=== PATIENT | female | born 1965 | race Caucasian/White ===

== ENCOUNTER 2022-09-04 09:34 | Outpatient (CLI) | payer BC, SELFPAY | END 2022-09-04 09:35 | disposition home or self-care (01) | PROVIDERS: PCP Internal Medicine; Visit Provider Internal Medicine | DX: I10 Essential (primary) hypertension (principal); R63.5 Abnormal weight gain | CPT/HCPCS: 80053; 80061; 84443 ==

== ENCOUNTER 2022-11-02 20:43 | Emergency (ER) | payer BC, SELFPAY ==
[2022-11-02 20:49] VITALS: BP 114/73; PULSE 66; RESP 16; TEMP 35.6; O2SAT 98
--- NOTE | 2022-11-02 21:11 | ED.GENADULT ---
HPI - General Adult General Chief complaint: Unspecified Complaint, Adult Stated complaint: Wood tick bite, chills, fatigue, muscle ache Time Seen by Provider: 11/02/22 20:46 Source: patient Mode of arrival: ambulatory Limitations: no limitations History of Present Illness HPI narrative: 57-year-old female presenting today after she found a tick on her back earlier today. The tick was engorged. She believes it was a wood tick but there is no way to know for sure if she through the tick in the trash. She states that she was very fatigued today took a nap which she has done in the past, but she felt more tired than usual. No fevers or chills. No skin rashes. Patient has been looking uptake symptoms on the Internet and is quite concerned that she has alexandra Mountain spotted fever or Lyme disease. Related Data Previous Rx's Medication Instructions Recorded dextroamphetamine-amphetamine 10 10 mg PO BID #60 tabs 03/06/22 mg tablet (Adderall) Allergies Allergy/AdvReac Type Severity Reaction Status Date / Time No Known Allergies Allergy Unknown Unknown Verified 09/04/22 09:18 Review of Systems Status of ROS: Reports: 10 or more systems reviewed and unremarkable except as noted in History and below [facility] Medical History Weight gain ?R63.5 - Abnormal weight gain (ICD-10) Social History Smoking Status: Former smoker Little interest or pleasure in doing things: more than half the days Feeling down, depressed, or hopeless: not at all Exam Narrative: Exam Narrative: Well-nourished well-developed patient in no acute distress but is anxious. Alert and oriented. Answers questions appropriately. Mood and affect are appropriate. Thoughts are goal oriented and rational. No tangential or magical thinking noted. Patient speaks in full sentences without needing to catch her breath. HEENT: Normocephalic atraumatic. Pupils are equally round reactive to light. Extraocular muscles are intact. Conjunctivae are moist without any icterus noted. Moist mucous membranes. Cardiovascular: Heart is regular rate and rhythm S1 and S2 are present without any murmurs. Lungs: Clear to auscultation bilaterally no wheezes rhonchi or rales are appreciated. Patient takes deep breaths without any discomfort. Abdomen: Soft and nontender nondistended with normal bowel sounds. Extremities: Bilateral lower extremities are without edema. Skin: Well perfused without any obvious rashes. She does have at the site of the tick bite a small area of skin that has been avulsed in some mild surrounding erythema, the area is less than a cm in diameter. Does not appear to be infected. There is no bull's eye rash noted. Const: Vital Signs, click to edit/add: Vital Signs - 24 hr 11/02/22 20:49 Temperature 96.1 F L Pulse Rate [Left P ulse Oximeter] 66 Respiratory Rate 16 Blood Pressure [Ri ght Upper Arm] 114/73 Pulse Oximetry 98 Oxygen Delivery Me thod Room Air Course Vital Signs Vital signs: Initial Vital Signs Temperature 96.1 F L 11/02/22 20:49 Temperature Source Temporal Artery Scan 11/02/22 20:49 Pulse Rate 66 11/02/22 20:49 Pulse Rhythm Regular 11/02/22 20:49 Respiratory Rate 16 11/02/22 20:49 Blood Pressure 114/73 11/02/22 20:49 Blood Pressure Mean 86 11/02/22 20:49 Blood Pressure Position Sitting 11/02/22 20:49 Pulse Oximetry 98 11/02/22 20:49 Oxygen Delivery Method Room Air 11/02/22 20:49 Vital Signs Temperature 96.1 F L 11/02/22 20:49 Pulse Rate 66 11/02/22 20:49 Respiratory Rate 16 11/02/22 20:49 Blood Pressure 114/73 11/02/22 20:49 Pulse Oximetry 98 11/02/22 20:49 Oxygen Delivery Method Room Air 11/02/22 20:49 Temperature 96.1 F L 11/02/22 20:49 Pulse Rate 66 11/02/22 20:49 Respiratory Rate 16 11/02/22 20:49 Blood Pressure 114/73 11/02/22 20:49 Pulse Oximetry 98 11/02/22 20:49 Oxygen Delivery Method Room Air 11/02/22 20:49 Medical Decision Making MDM Narrative Medical decision making narrative: 57-year-old female status post tick bite with engorged tick which was removed today. Will treat with doxycycline 200 mg time 1 today. Encouraged her to follow up with her primary care provider for any concerning symptoms going forward. Did my best to reassure her that this will treat the potential of Lyme disease, and that I do not believe she has alexandra Mountain spotted fever due to lack of symptoms. Discharge Plan Discharge Clinical Impression: Tick bite Condition: Stable Additional Instructions: Follow-up with primary care provider if you develop a fever or rash. Prescriptions: No Action dextroamphetamine-amphetamine [Adderall] 10 mg tablet 10 mg PO BID Qty: 60 0RF Rx Instructions: administer doses at least 4-6 hours apart Follow Up/Referrals: Polo Roldan MD [Primary Care Provider] - Stand Alone Forms: [employer] Info Instructions
[2022-11-02] MEDS: DOXYCYCLINE HYCLATE 100 MG 200 MG PO (21:28)
== END 2022-11-02 21:35 | disposition home or self-care (01) ==
PROVIDERS: Emergency Provider Family Medicine; PCP Internal Medicine
DX: S20.469A Insect bite (nonvenomous) of unspecified back wall of thorax, initial encounter (principal); T63.481A Toxic effect of venom of other arthropod, accidental (unintentional), initial encounter
CPT/HCPCS: 99282; 99283; A9270

== ENCOUNTER 2023-03-11 15:35 | Outpatient (CLI) | payer BC, SELFPAY ==
--- NOTE | 2023-03-11 15:40 | CRLHL7_ITS ---
For Patients: As a result of the Century Cures Act, medical imaging exams and procedure reports are released immediately into your electronic medical record. You may view this report before your referring provider. If you have questions, please contact your health care provider. BILATERAL SCREENING MAMMOGRAM WITH COMPUTER-AIDED DETECTION TECHNIQUE: CC and MLO views were obtained. These mammographic images have been obtained using full-field digital technique. These mammographic images were interpreted with the benefit of computer-aided detection. COMPARISON FILM: 06/27/15, 05/30/14, 05/03/14. FINDINGS: The breasts are heterogeneously dense, which may obscure small masses. IMPRESSION: There is no radiographic evidence for malignancy. ASSESSMENT: BI-RADS Category 1: Negative RECOMMENDATION: Routine screening mammogram in 1 year. A lay language report of this examination will be provided to the patient. WILLARD BRADFORD M.D. Diagnostic Radiologist [email or web address] Transcribed: 03/12/2023, 7:[address]/Dictated by: Willard Bradford MD @ 03/12/2023 9:39:00 AM (Electronically Signed)
== END 2023-03-11 15:36 | disposition home or self-care (01) ==
LOC: MAMMO 15:36
PROVIDERS: PCP Internal Medicine; Visit Provider Registered Nurse
DX: Z12.31 Encounter for screening mammogram for malignant neoplasm of breast (principal); R92.2 Inconclusive mammogram
CPT/HCPCS: 77067

== ENCOUNTER 2024-04-15 10:17 | Emergency (ER) | payer BC, SELFPAY ==
[2024-04-15] VITALS (22 sets, daily range): BP systolic 98–136; BP diastolic 58–77; PULSE 29–82; RESP 22; TEMP 36.4; O2SAT 97–100
--- OUTSIDE RECORDS SUMMARY | 2024-04-15 10:20 | XMS_ITS | Clinical Summary ---
Author Organization [facility] Address [place], [place] [address] Care Team Providers Care Power Transformer Repairer Name Role Phone Vidya Michelle MD Primary Care Provider [phone] Allergies No known active allergies Medications VITAMIN TAB take 1 tablet by oral route once daily 0 04/02/2007 Active METOPROLOL SR 25 MG 24 HR TAB three tablets daily 0 04/02/2007 Active Immunizations Name Administration Dates Next Due AMB Influenza, IIV3 (Age >=3 years)(Flu Clinic [facility]) 02/11/2008 Family History Medical History Relation Name Comments Allergies Mother Cancer-breast Paternal Aunt Cancer-breast Paternal Grandmother Allergies Sister Cancer-breast Sister Cancer-ovarian No Family History Relation Name Status Comments Mother Paternal Aunt Alive Diagnosed in h er 60s Paternal Grandmother (Age 79) Sister Alive Social History Tobacco Use Types Packs/Day Years Used Date Smoking Tobacco: Never Alcohol Use Standard Drinks/Week Comments Not Asked 0 (1 standard drink = 0.6 oz pur e alcohol) Estimated Date of Delivery Comme nts Yes 08/24/2007 Sex and Gender Information Value Date Recorded Sex Assigned at Not on file Legal Sex Female 6:31 AM CEMENTER HAND Gender Identity Not on file Sexual Orientation Not on file Obstetrics History Para Term AB IAB SAB Ectopic Multiple Livin g Live Births 4 1 2 2 1 Date Outcome GA Total Labor Labor/2nd/3rd Weight Sex Type Anes PTL Mindy A1 A5 Name Clin SAB SAB Para Last Filed Vital Signs Vital Sign Reading Time Taken Comments Blood Pressure 94/60 02/09/2008 1:32 PM CEMENTER HAND Pulse 65 02/09/2008 1:32 PM CEMENTER HAND Temperature 36.7 C (98.1 F) 02/09/2008 1:32 PM CEMENTER HAND Respiratory Rate - - Oxygen Saturation - - Inhaled Oxygen Concentration - - Weight 109.6 kg (241 lb 9.6 oz) 06/25/2007 3:36 PM CDT Height - - Body Mass Index - - Plan of Treatment Health Maintenance Due Date Last Done Comments Tdap 1978 Depression screening for age 12+ 1979 HIV for age 15-65 1982 BMI (ht and wt on same day) for age 18+ 1985 Hepatitis C screening for ag e 18-79 1985 Tetanus booster 1987 Colonoscopy through age 75 2012 Lipids for age 45-75 02/10/2013 02/11/2008 Mammogram for age 45-75 06/26/2016 06/27/19 16, 05/30/2014, 05/23/2014, Additional history exists Pneumococcal series for age 50+ (1 of 1 - PCV) 2017 Zoster (shingles) series for age 50+ (1 of 2) 2017 COVID-19 vaccine series ( - 2023- season) 2023 Influenza for age 50-64 11/30/2023 02/11/2008 Pap test for age 21-65 12/10/2025 12/10/2022, 2022 RSV vaccine for adults or (1 - 1-dose 75+ series) 2042 Procedures Procedure Name Priority Date/Time Associated Diagnosis Comments HPV HIGH RISK Routine 12/10/2022 12:00 PM CDT XR MAMMO ANNETTE BILAT SCREEN Routine 06/27/2015 12:27 PM CDT Visit for screening mammogram LIPID PANEL Routine 02/11/2008 8:58 AM CEMENTER HAND Lipid Screening from Last 3 Months or Most Recently Relevant to Health Maintenance Results * HPV HIGH RISK (12/10/2022 12:00 PM CDT) TYPE 16 Negative Negative 12/16/2022 11:12 AM CDT [facility] TYPE 18 Negative Negative 12/16/2022 11:12 AM CDT [facility] OTHER HIGH RISK TYPES Negative Negative 12/16/2022 11:12 AM CDT [facility] Other (Cervical) 12/10/2022 12:00 PM CDT 12/12/2022 2:36 PM CDT Narrative [facility] - 12/16/2022 11:12 AM CDT HPV types 16, 18, 31, 33, 35, 39, 45, 51, 52, 56, 58, 59, 66 and 68 DNA were undetectable or below the pre-set threshold. Methodology: Dana Vidal 4800 HPV Test us Lili Hastings NP MICROBIOLOGY Final Res ult [facility] [address] [place] [id number], [place] * XR MAMMO ANNETTE SCREEN BILAT (06/27/2015 12:27 PM CDT) Anatomical Region Laterality Modality BREASTS, Breast Left, Breast Right Bilateral Mammography Impressions 06/27/2015 3:37 PM CDT There is no radiographic evidence for malignancy. Recommend annual mammograms. A lay language report of this examination will be provided to the patient. MAMMOGRAM ASSESSMENT: ACR 1 Negative Narrative 06/27/2015 3:37 PM CDT XR MAMMO ANNETTE SCREEN BILAT [[id number]] CLINICAL HISTORY: This is an asymptomatic 50 y.o. patient. INDICATION FOR EXAM: Mammogram Screening. TECHNIQUE: CC & MLO views were obtained. This digital study was evaluated with the assistance of Computer-Aided Detection. Breast Tomosynthesis was used in interpretation. COMPARISON FILM: Yes 05/23/14 05/18/13 FINDINGS: Mammographically, the breast tissue is heterogeneously dense, which could obscure detection of small masses. There are no dominant masses, suspicious micro calcifications or areas of architectural distortion. us Vidya Michelle MD MAMMO Final Res ult * LIPID PANEL (02/11/2008 8:58 AM CEMENTER HAND) CHOLESTEROL,TOTAL 188 110 - 199 mg/dL [facility] TRIGLYCERIDES 47 <150 mg/dL [facility] HDL CHOLESTEROL 62 >40 mg/dL [facility] CHOL/HDL RATIO 3.03 <4.51 [facility] LDL CHOLESTEROL 117 <131 mg/dL [facility] PATIENT STATUS Fasting [facility] Blood specimen (specimen) BLOOD SPECIMEN / Unknown 02/11/2008 8:58 AM CEMENTER HAND 02/11/2008 8:45 AM CEMENTER HAND us Walker Garcia MD CHEMISTRY Final R esult [facility] [address] [place] [address] from Last 3 Months or Most Recently Relevant to Health Maintenance Insurance [employer] Care Teams Power Transformer Repairer Relationship Specialty Start Date End Date Vidya Michelle MD [address] [place] [address] PCP - General 03/05/07
--- OUTSIDE RECORDS SUMMARY | 2024-04-15 10:20 | XMS_ITS | Referral Summary ---
Author Organization [facility] Address [address] [place] [id number] Care Team Providers Care Food Service Team Member Name Role Phone Polo Roldan MD Primary Care Provider Allergies No known active allergies Medications amphetamine-dext roamphetamine (ADDERALL) 10 MG tablet TK 1 T PO BID 0 9 Active ipratropium (ATROVENT) 0.06 % nasal sprayIndications :Nasal turbinate hypertrophy [place] 2 sprays into both nostrils 4 times daily 15 mL 3 9 Active azelastine (ASTELIN) 0.1 % nasal sprayIndications :Nasal turbinate hypertrophy,Dysf unction of both eustachian tubes [place] 1 spray into both nostrils 2 times daily as needed for rhinitis 30 mL 3 9 Active Active Problems Problem Noted Date Diagnosed Date Eustachian tube dysfunction, bilateral 9 Social History Tobacco Use Types Packs/Day Years Used Date Smoking Tobacco: Former Cigarettes 0.5 15 Smokeless Tobacco: Never Tobacco Cessation:Counseling Given: No Alcohol Use Standard Drinks/Week Comments Yes 0 (1 standard drink = 0.6 oz pur e alcohol) AUDIT-C Answer Date Recorded Q1: How often do you have a drink containing alc ohol? Monthly or less 01/14/2019 Average Number of Drinks Not on file 10/17/2 019 Frequency of Binge Drinking Not on file 12/29 PHQ-2 Answer Date Recorded PHQ-2 Score 0 01/14/2019 Adolescent Education Answer Date Record ed Getting School Help Needed Not on file 12/20 Comments Unknown Sex and Gender Information Value Date Recorded Sex Assigned at Not on file Legal Sex Female 11:34 AM CDT Gender Identity Not on file Sexual Orientation Not on file Last Filed Vital Signs Vital Sign Reading Time Taken Comments Blood Pressure 109/72 03/03/2019 2:39 PM ALLEY TENDER Pulse 92 03/03/2019 2:39 PM ALLEY TENDER Temperature - - Respiratory Rate 17 01/14/2019 12:51 PM CDT Oxygen Saturation 96% 03/03/2019 2:39 PM ALLEY TENDER Inhaled Oxygen Concentration - - Weight 89.4 kg (197 lb) 03/03/2019 2:39 PM ALLEY TENDER Height 174 cm (5' 8.5) 03/03/2019 1:20 PM ALLEY TENDER Body Mass Index 29.52 03/03/2019 1:20 PM ALLEY TENDER Plan of Treatment Not on file Insurance [facility] Care Teams Food Service Team Member Relationship Specialty Start Date End Date Polo Roldan MD [facility] [address] [place] [address] PCP - General Emergency Medicine 09/21/18
--- OUTSIDE RECORDS SUMMARY | 2024-04-15 10:20 | XMS_ITS | Clinical Summary ---
Author Organization [facility] Address [address] [place] [id number] Care Team Providers Care Curve Saw Operator Name Role Phone Polo Roldan MD Primary Care Provider Allergies No known active allergies Medications amphetamine-dext roamphetamine (ADDERALL) 10 MG tablet TK 1 T PO BID 0 9 Active ipratropium (ATROVENT) 0.06 % nasal sprayIndications :Nasal turbinate hypertrophy [place] 2 sprays into both nostrils 4 times daily 15 mL 3 9 Active azelastine (ASTELIN) 0.1 % nasal sprayIndications :Nasal turbinate hypertrophy,Dysf unction of both eustachian tubes [place] 1 spray into both nostrils 2 times daily as needed for rhinitis 30 mL 3 9 Active Active Problems Problem Noted Date Diagnosed Date Eustachian tube dysfunction, bilateral 9 Family History Medical History Relation Comments Cancer Father Diabetes Father Cancer Paternal Grandmother Cancer Sister Diabetes Sister Relation Status Comments Father Paternal Grandmother Sister Social History Tobacco Use Types Packs/Day Years [...] Average Number of Drinks Not on file 019 Frequency of Binge Drinking Not on [...] Comments Blood Pressure 109/72 03/03/2019 2:39 PM CANVAS MARKER Pulse 92 03/03/2019 2:39 PM CANVAS MARKER Temperature - - Respiratory Rate 17 01/14/2019 12:51 PM CDT Oxygen Saturation 96% 03/03/2019 2:39 PM CANVAS MARKER Inhaled Oxygen Concentration - - Weight 89.4 kg (197 lb) 03/03/2019 2:39 PM CANVAS MARKER Height 174 cm (5' 8.5) 03/03/2019 1:20 PM CANVAS MARKER Body Mass Index 29.52 03/03/2019 1:20 PM CANVAS MARKER Plan of Treatment Not on file Insurance [employer] [place] Care Teams Curve Saw Operator Relationship Specialty Start Date End Date Polo Roldan MD [facility] [address] [place] [address] PCP - General Emergency Medicine 09/21/18
--- NOTE | 2024-04-15 11:42 | ED.GENADULT ---
HPI - General Adult General Date Seen: 04/15/24 Chief complaint: Flank Pain Stated complaint: flank pain/left hand numbness Time Seen by Provider: 04/15/24 11:30 History of Present Illness HPI narrative: 58-year-old female with history of hypertension, ADHD, presenting to the ER today with right flank pain. She has a past medical history of a previous gallstone (diagnosed several years ago, but never had recurrent pain so has not had cholecystectomy). She presents to the ER today with pain in her right flank that is wrapping around to her right upper quadrant and right lower quadrant of her abdomen. She woke up in the morning about 3 days ago with some pain in the right flank. She initially thought maybe she had pulled a muscle but since then the pain has been coming and going in waves and steadily getting worse over time. This morning it was quite severe and made her nauseous. She did not vomit. No clear pattern to the pain. No relationship to eating or fasting, and does not change with movement. No associated urinary symptoms. No dysuria, urgency, frequency, visible hematuria. Bowel movements have been normal. She has been sweaty and dizzy from the pain but not running a fever. No cough. No rib pain. No trouble breathing. Related Data Previous Rx's ?Medication ?Instructions ?Recorded lorazepam 1 mg tablet 1 mg PO QHS PRN insomnia #30 tabs 05/21/23 dextroamphetamine-amphetamine 10 10 mg PO BID #60 tabs 02/17/24 mg tablet (Adderall) triamcinolone acetonide 0.1 % 1 applic topical QDAY #15 grams 03/04/24 topical cream Allergies Allergy/AdvReac Type Severity Reaction Status Date / Time No Known Allergies Allergy Unknown Unknown Verified 03/04/24 08:09 [facility] Medical History (Updated 04/15/24 @ 17:57 by Jack Burgess MD) Rash ?R21 - Rash and other nonspecific skin eruption (ICD-10) Insomnia ?G47.00 - Insomnia, unspecified (ICD-10) Weight gain ?R63.5 - Abnormal weight gain (ICD-10) Surgical History ?O03.9 - Complete or unspecified spontaneous without complication (ICD-10) S/P trigger finger release ?Z98.890 - Other specified postprocedural states (ICD-10) Family History Other Breast cancer Colon cancer Diabetes Heart disease High blood pressure Prostate cancer Social History What is your current living situation?: I have a place to live at present, but am concerned about future Problems where you live: water leaks In the past 12 months, utilities in danger of being shut off: no In past 12 months, lack of transportation kept you from medical appts, meetings, work, or getting things needed for daily living: no In the past 12 mos, have been you worried that your food would run out before you had money to buy more?: never true In the past 12 mos, the food you bought just didn't last and you didn't have money to buy more?: unable to answer Smoking Status: Former smoker How often do you have a drink containing alcohol: 2-4 times a month AUDIT-C Alcohol total score: 2 Non-prescribed substance use: denies use How often does anyone, including family, friends and others, physically hurt you: never How often does anyone, including family, friends and others, insult or talk down to you: fairly often How often does anyone, including family, friends and others, threaten you with harm: never How often does anyone, including family, friends and others, scream or curse at you: fairly often service: No Health Related Social Needs: Inadequate housing (Z59.1), housing instability, housed, with risk of homelessness (Z59.811) and Other personal risk factors, not elsewhere classified (Z91.89) Exam Narrative: Exam Narrative: Constitutional: Appears well-developed and well-nourished. Alert. Uncomfortable and rubbing her right side, having trouble sitting still because of pain Conversant. Non toxic. HENT: Head: Atraumatic. Nose: Nose normal. Mouth/Throat: Oral mucosa is clear and moist. no trismus. Pharynx normal. Tonsils symmetric. No tonsillar enlargement, erythema, or exudate. Eyes: Conjunctivae normal. EOM normal. Pupils equal, round, and reactive to light. No scleral icterus. Neck: Normal range of motion. Neck supple. No tracheal deviation present. Cardiovascular: Normal rate, regular rhythm. No gallop. No friction rub. No murmur heard. Symmetric radial artery pulses Pulmonary/Chest: Effort normal. No stridor. No respiratory distress. No wheezes. No rales. No rhonchi . No ribcage tenderness. Abdominal: Soft. Bowel sounds normal. No distension. No mass. Mild right upper quadrant and more significant right CVA tenderness. No right lower quadrant or McBurney's point tenderness No rebound. No guarding. Musculoskeletal: RUE: Normal range of motion. No tenderness. No deformity LUE: Normal range of motion. No tenderness. No deformity RLE: Normal range of motion. No edema. No tenderness. No deformity LLE: Normal range of motion. No edema. No tenderness. No deformity Neurological: Alert and oriented to person, place, and time. Normal strength. CN II-VII intact. No sensory deficit. GCS eye subscore is 4. GCS verbal subscore is 5. GCS motor subscore is 6. Normal coordination Skin: Skin is warm and dry. No rash noted. No pallor. Normal capillary refill. Psychiatric: Normal mood. Uncomfortable affect but otherwise normal and polite. Const: Vital Signs, click to edit/add: Vital Signs - 24 hr 04/15/24 10:24 04/15/24 13:00 04/15/24 13:02 Temperature 97.6 F Pulse Rate 65 Pulse Rate [Pulse Oximeter] 70 Respiratory Rate 22 Blood Pressure 121/77 Blood Pressure [Ri ght Upper Arm] 123/58 L Pulse Oximetry 99 [facility] 04/15/24 13:15 04/15/24 13:30 04/15/24 13:31 Temperature Pulse Rate 69 64 63 Pulse Rate [Pulse Oximeter] Respiratory Rate Blood Pressure 116/66 Blood Pressure [Ri ght Upper Arm] Pulse Oximetry 98 98 98 [facility] 04/15/24 13:45 04/15/24 14:00 04/15/24 14:01 Temperature Pulse Rate 62 67 55 L Pulse Rate [Pulse Oximeter] Respiratory Rate Blood Pressure 98/64 Blood Pressure [Ri ght Upper Arm] Pulse Oximetry 99 100 100 Oxygen Delivery [facility] 04/15/24 14:20 04/15/24 14:30 04/15/24 14:31 Temperature Pulse Rate 65 72 62 Pulse Rate [Pulse Oximeter] Respiratory Rate Blood Pressure 136/76 Blood Pressure [Ri ght Upper Arm] Pulse Oximetry 100 100 100 Oxygen Delivery Me thod 04/15/24 14:45 04/15/24 15:01 04/15/24 15:02 Temperature Pulse Rate 61 82 77 Pulse Rate [Pulse Oximeter] Respiratory Rate Blood Pressure 116/70 Blood Pressure [Ri ght Upper Arm] Pulse Oximetry 100 100 100 Oxygen Delivery Ks thod 04/15/24 15:23 04/15/24 15:30 04/15/24 15:31 Temperature Pulse Rate 29 L 66 68 Pulse Rate [Pulse Oximeter] Respiratory Rate Blood Pressure 113/66 Blood Pressure [Ri ght Upper Arm] Pulse Oximetry 99 97 Oxygen Delivery Ks thod 04/15/24 15:32 04/15/24 16:01 04/15/24 16:31 Temperature Pulse Rate 70 Pulse Rate [Pulse Oximeter] Respiratory Rate Blood Pressure 115/61 110/64 Blood Pressure [Ri ght Upper Arm] Pulse Oximetry 98 [facility] 04/15/24 17:01 Temperature Pulse Rate Pulse Rate [Pulse Oximeter] Respiratory Rate Blood Pressure 116/67 Blood Pressure [Ri ght Upper Arm] Pulse Oximetry Oxygen Delivery Me thod Course Course ED Course: Recheck-pain not much improved after Toradol. Dilaudid ordered Reevaluation(s) Reevaluation #1: Recheck-after Dilaudid 0.5 mg IV patient had significant side effects including dizziness, tingling , feeling lightheaded and she did develop hypoxia. Placed on nasal cannula and sats came up. Monitored and side effects resolved Reevaluation #2: Recheck-having recurrent pain. Dilaudid 0.2 mg IV administered. The patient did better with less side effects at this dose. Stone protocol CT is surprisingly negative for kidney stone. Will obtain gallbladder ultrasound Reevaluation #3: Recheck-ultrasound and labs reassuring. Patient now saying that the pain is rating a little bit into her lower ribs, she really endorsed earlier that was more in the muscular flank. Will add on D-dimer to check for possible very low right lower lung PE. Additional Reevaluation(s): Recheck D-dimer normal Vital Signs Vital signs: Initial Vital Signs Temperature 97.6 F 04/15/24 10:24 Temperature Source Temporal Artery Scan 04/15/24 10:24 Pulse Rate 70 04/15/24 10:24 Respiratory Rate 22 04/15/24 10:24 Blood Pressure 123/58 L 04/15/24 10:24 Blood Pressure Mean 79 04/15/24 10:24 Pulse Oximetry 99 04/15/24 10:24 Oxygen Delivery Method Room Air 04/15/24 10:24 Vital Signs Temperature 97.6 F 04/15/24 10:24 Pulse Rate 70 04/15/24 10:24 Respiratory Rate 22 04/15/24 10:24 Blood Pressure 123/58 L 04/15/24 10:24 Pulse Oximetry 99 04/15/24 10:24 Oxygen Delivery Method Room Air 04/15/24 10:24 Temperature 97.6 F 04/15/24 10:24 Pulse Rate 70 04/15/24 15:32 Respiratory Rate 22 04/15/24 10:24 Blood Pressure 116/67 04/15/24 17:01 Pulse Oximetry 98 04/15/24 15:32 Oxygen Delivery Method Room Air 04/15/24 10:24 Medications Administered Medications: Discontinued Medications Generic Name Dose Route Start Last Admin Trade Name Freq PRN Reason Stop Dose Admin Hydromorphone HCl 0.5 mg 04/15/24 12:35 04/15/24 14:55 Hydromorphone 0.5 Mg/0.5 Ml Inj IVP 0.5 mg Q1H PRN Administration Pain Sodium Chloride 500 mls @ 500 mls/hr 04/15/24 11:44 04/15/24 12:15 0.9 % Sodium Chloride 500 Ml IV 04/15/24 12:43 500 mls/hr .Q1H ONE Administration Ketorolac Tromethamine 15 mg 04/15/24 11:44 04/15/24 12:16 Ketorolac 15 Mg/Ml Inj IVP 04/15/24 11:45 15 mg ONCE ONE Administration Ondansetron HCl 4 mg 04/15/24 11:44 04/15/24 12:17 Ondansetron 2 Mg/Ml Inj IVP 04/15/24 11:45 4 mg ONCE ONE Administration Medical Decision Making [facility] Narrative Medical decision making narrative: Pleasant 58-year-old female presenting with atraumatic right flank pain ongoing for the past couple of days, getting worse. She initially thought she might have pulled a muscle but does not think so anymore based on the severity of her pain. Differential is broad. At this point I do not see any evidence for any kidney stone or hydronephrosis. No evidence for pyelonephritis with normal urinalysis. Consider cholecystitis or hepatitis but gallbladder ultrasound and LFTs are normal. Lipase normal. White count normal. No other abnormality noted on CT abdomen pelvis such as appendicitis, diverticulitis, colitis bowel obstruction. Incidentally she does have a low-lying left kidney, which is position in the pelvis. She is not having any pain on that side and her she was previously aware of her low lying kidney Consider thoracic causes of her flank pain. She is not having any ripping or tearing component to suggest aortic dissection. Additionally would be low risk for aortic dissection and D-dimer is normal so would hold off on CT angiogram for now based on low aortic dissection risk score. Consider possible PE. She has no recent travel, no leg swelling, no history of DVT or PE. Overall is low risk. Screening D-dimer is normal, less than 0.5. Therefore likelihood of PE is very low and risk of contrast nephropathy or malignancy from radiation would outweigh the benefit of a CT PA at this time. Visualized portions of her lower lung field are normal. No evidence for pneumothorax, pleural effusion, rib fracture, or infiltrate on her CT scan Examination of her flank shows no evidence for shingles, bruising, cellulitis. She is not having any midline back pain to suggest a spine or vertebrae pathology. Discussed with the patient and her friend that at this point workup is nondiagnostic but is ultimately reassuring. Insert plan of care would be to manage pain supportively. Instymeds prescriptions for Flexeril and Percocet provided. Opiate and sedation precautions reviewed some the bowel are follow-up in or 24 hours if ongoing pain. Precautions for return to the ER if worse. Questions answered to the best my ability. Lab Data Labs: Lab Results 04/15/24 04/15/24 04/15/24 Range/Units 12:16 14:20 16:07 WBC 4.90 (4.50-11.00) K/uL RBC 4.63 (4.00-5.20) m/uL Hgb 12.7 (12.0-16.0) gm/dL Hct 39.3 (33.0-51.0) % MCV 85 (80-100) fL MCH 27 (26-34) pg MCHC 32 (32-36) gm/dL RDW Coeff of Sheila 14.4 (11.5-15.5) % Plt Count 187 (140-440) K/uL Neut % (Auto) 72.1 H (42.0-72.0) % Lymph % (Auto) 20.4 (20-44) % Evans % (Auto) 6.1 (0.0-11.0) % Eos % (Auto) 0.4 (0.0-7.0) % Baso % (Auto) 0.2 (0.0-3.0) % Neut # (Auto) 3.50 (1.7-7.0) K/uL Lymph # (Auto) 1.00 (0.90-2.90) K/uL Evans # (Auto) 0.30 (0.00-0.90) K/UL Eos # (Auto) 0.02 (0.00-0.50) K/uL Baso # (Auto) 0.01 (0.00-0.30) K/uL Abs Immat Gran (auto) 0.04 (0.00-0.30) K/uL Imm/Tot Granulo (auto) 0.8 % D-Dimer Quant (PE/DVT) < 0.27 (0.00-0.50) ug/ml Sodium 137 (135-149) mmol/L Potassium 3.6 (3.6-5.1) mmol/L Chloride 106 (96-114) mmol/L Carbon Dioxide 23 (20-32) mmol/L Anion Gap 8 (7-15) mEq/L BUN 11 (7-30) mg/dL Creatinine 0.7 (0.5-1.5) mg/dL Estimated GFR 101 ml/min Glucose 102 (60-115) mg/dL Calcium 9.4 (8.4-10.6) mg/dL Total Bilirubin 0.8 (0.1-1.5) mg/dL AST 27 (12-35) U/L ALT 20 (4-35) U/L Alkaline Phosphatase 81 (40-150) U/L Total Protein 6.5 (6.0-8.3) g/dL Albumin 4.3 (3.3-5.0) g/dL Lipase 79 (23-300) U/L Urine Color Yellow (Yellow) Urine Appearance Clear (Clear) Urine pH 7.0 (5.0-8.5) Ur Specific [place] 1.020 (1.000-1.030) Urine Protein Negative (Negative) Urine Glucose (UA) Negative (Negative) Urine Ketones 2+ A (Negative) Urine Blood Negative (Negative) Urine Nitrite Negative (Negative) Urine Bilirubin Negative (Negative) Urine Urobilinogen 0.2 (0.2-1.0) Ur Leukocyte Esterase Negative (Negative) Urine RBC 0-2 (0-2) Urine WBC 0-2 (0-5) Ur Squamous Epith Cells None (None-Few) Urine Bacteria None (None) Imaging Data CT scan - abdomen: Attestation: I have reviewed the pertinent imaging results. Radiologist's impression: IMPRESSION: 1. No specific visible cause for right flank pain. No right-sided obstructive uropathy. There is mild diffuse fecal retention. No evidence of appendicitis. 2. Left pelvic kidney as described. 3. Other incidental nonacute appearing findings as above US gallbladder: Attestation: I have reviewed the pertinent imaging results. Radiologist's impression: Findings: The gallbladder is normal in appearance. No sludge, calculus or pericholecystic fluid. No reported sonographic Marina`s sign. Wall thickness normal at 2 millimeters. Common duct normal caliber at 4 millimeters. Impression: Normal ultrasound examination of the gallbladder. The common duct is of normal caliber. Discharge Plan Discharge Clinical Impression: Right flank pain Patient Disposition: Home, Self-Care Condition: Stable Instructions: Flank Pain (ED) Additional Instructions: as we discussed, the cause for your pain is not clear at this time. If you have persistent pain right here tomorrow, please come back to the ER or see your regular doctor for recheck. If you have worsening symptoms, come back to the ER right away. To treat your pain you can use Tylenol or ibuprofen. The pain is not controlled by those medications use the prescription muscle relaxers or prescription pain killers. Be careful with prescription pain killers because they can do cause dizziness, drowsiness, constipation, and can be addictive. Do not drive or operate machinery for 4 hours after taking pain meds. Prescriptions: No Action lorazepam 1 mg tablet 1 mg PO QHS PRN (Reason: insomnia) Qty: 30 0RF triamcinolone acetonide 0.1 % cream 1 applic topical QDAY Qty: 15 0RF dextroamphetamine-amphetamine [Adderall] 10 mg tablet 10 mg PO BID Qty: 60 0RF Rx Instructions: administer doses at least 4-6 hours apart Follow Up/Referrals: Polo Roldan MD [Primary Care Provider] - Stand Alone Forms: [facility] Info Instructions
--- NOTE | 2024-04-15 11:44 | CRLHL7_ITS ---
For Patients: As a result of the Century Cures Act, medical imaging exams and procedure reports are released immediately into your electronic medical record. You may view this report before your referring provider. If you have questions, please contact your health care provider. Indication: Right upper quadrant abdominal pain Technique: Sonography of the right upper quadrant was performed limited to that which is discussed below. Comparison: Portions of a CT from April 15, 2024 and portions of an July 25, 2017 study. Findings: The gallbladder is normal in appearance. No sludge, calculus or pericholecystic fluid. No reported sonographic Marina`s sign. Wall thickness normal at 2 millimeters. Common duct normal caliber at 4 millimeters. Impression: Normal ultrasound examination of the gallbladder. The common duct is of normal caliber. Dictated by Damian Kay MD @ 04/15/2024 1:35:36 PM (Electronically Signed)
--- NOTE | 2024-04-15 11:55 | CRLHL7_ITS ---
For Patients: As a result of the 21st Century Cures Act, medical imaging exams and procedure reports are released immediately into your electronic medical record. You may view this report before your referring provider. If you have questions, please contact your health care provider. INDICATION: Right flank pain COMPARISON: None TECHNIQUE: CT examination of the abdomen and pelvis was performed without intravenous contrast. Thin section axial images were obtained from the lung bases through the pubic symphysis. Oral contrast was not administered. Please note that all CT scans at this facility use dose modulation, iterative reconstruction, and/or weight-based dosing when appropriate to reduce radiation dose to as low as reasonably achievable. FINDINGS: LUNG BASES: The lung bases as visualized appear normal.The heart size is normal at the lung bases. LIVER/BILIARY SYSTEM:The liver is normal in size and configuration given the lack of intravenous contrast. There is no visible focal mass and there is no intra- or extra hepatic biliary ductal dilatation.The gallbladder appears normal. There are incidental granulomatous calcifications of the liver. ADRENALS: The adrenal glands appear normal. KIDNEYS, URETERS and BLADDER:The right kidney is unremarkable. No intrarenal calculus. No right hydronephrosis or right hydroureter. No calculus within the bladder. There is no left kidney in the left renal fossa. There is a left kidney in the pelvis. This is probably a true pelvic kidney rather than a ptotic kidney or transplant kidney. This kidney shows no evidence of obstructive uropathy or calculus. SPLEEN:Incidental granulomas calcifications PANCREAS: Normal non-contrast appearance. RETROPERITONEUM and MESENTERY: There is no mass, adenopathy or aortic aneurysm. GASTROINTESTINAL SYSTEM: There is no evidence of diverticulitis, colitis, mechanical obstruction, or appendicitis. The small bowel as visualized appears normal.Mild diffuse fecal retention. No mechanical obstruction. A few scattered diverticula are noted. No evidence of appendicitis PELVIS: No mass, adenopathy or free fluid. OSSEOUS STRUCTURES and ABDOMINAL WALL: There is an age-appropriate appearance of the osseous structures.No significant abdominal wall defect. OTHER: No free fluid or free air. IMPRESSION: 1. No specific visible cause for right flank pain. No right-sided obstructive uropathy. There is mild diffuse fecal retention. No evidence of appendicitis. 2. Left pelvic kidney as described. 3. Other incidental nonacute appearing findings as above Please note that all CT scans at this facility use dose modulation, iterative reconstruction, and/or weight-based dosing when appropriate to reduce radiation dose to as low as reasonably achievable. Dictated by Damian Kay MD @ 04/15/2024 1:44:52 PM (Electronically Signed)
[2024-04-15] MEDS: 0.9 % SODIUM CHLORIDE 500 ML 500 ML IV (12:15)
[2024-04-15] MEDS: KETOROLAC 15 MG/ML inj IVP (12:16)
[2024-04-15] MEDS: ONDANSETRON 2 MG/ML inj 4 MG IVP (12:17)
[2024-04-15 12:32] LABS: Basophils Absolute Auto 0.01 K/uL (0.00-0.30); Basophils Percent Auto 0.2 % (0.0-3.0); Eosinophils Absolute Auto 0.02 K/uL (0.00-0.50); Eosinophils Percent Auto 0.4 % (0.0-7.0); Hematocrit 39.3 % (33.0-51.0); Hemoglobin* 12.7 gm/dL (12.0-16.0); Immature Granulocytes Abs Auto 0.04 K/uL (0.00-0.30); Immature Granulocytes Pct Auto 0.8 %; Lymphocytes Percent Auto 20.4 % (20-44); Mean Corpuscular HGB Conc 32 gm/dL (32-36); Mean Corpuscular Hemoglobin 27 pg (26-34); Mean Corpuscular Volume 85 fL (80-100); Monocytes Percent Auto 6.1 % (0.0-11.0); Neutrophils Percent Auto 72.1 % (42.0-72.0); Platelet Count* 187 K/uL (140-440); RDW Coefficient of Variation % 14.4 % (11.5-15.5); Red Blood Count 4.63 m/uL (4.00-5.20); Slide Review Reflex No
[2024-04-15] MEDS: HYDROmorphone 0.5 mg/0.5 ml inj IVP ×2 (12:40→14:55)
[2024-04-15 12:43] LABS: Albumin* 4.3 g/dL (3.3-5.0); Chloride* 106 mmol/L (96-114); Sodium* 137 mmol/L (135-149)
[2024-04-15 12:44] LABS: Potassium* 3.6 mmol/L (3.6-5.1)
[2024-04-15 12:46] LABS: Alkaline Phosphatase* 81 U/L (40-150); Anion Gap 8 mEq/L (7-15); Aspartate Amino Transferase* 27 U/L (12-35); Bilirubin Total* 0.8 mg/dL (0.1-1.5); Blood Urea Nitrogen* 11 mg/dL (7-30); Carbon Dioxide* 23 mmol/L (20-32); Creatinine* 0.7 mg/dL (0.5-1.5); Estimated Glomerular Filt Rate 101 ml/min; Lipase* 79 U/L (23-300); Total Protein* 6.5 g/dL (6.0-8.3)
[2024-04-15 12:47] LABS: Alanine Aminotransferase* 20 U/L (4-35); Calcium* 9.4 mg/dL (8.4-10.6); Glucose* 102 mg/dL (60-115)
[2024-04-15 14:39] LABS: Appearance Urine Clear (Clear); Bilirubin Urine Negative (Negative); Blood Urine Negative (Negative); Color Urine Yellow (Yellow); Glucose Urine Negative (Negative); Ketones Urine 2+ (Negative); Leukocyte Esterase Urine Negative (Negative); Nitrite Urine Negative (Negative); Protein Urine Negative (Negative); Urobilinogen Urine 0.2 (0.2-1.0)
[2024-04-15 14:51] LABS: RBC Urine 0-2 (0-2); WBC Urine 0-2 (0-5)
[2024-04-15 16:40] LABS: D Dimer Quantitative* < 0.27 ug/ml (0.00-0.50)
== END 2024-04-15 18:08 | disposition home or self-care (01) ==
PROVIDERS: Emergency Provider Emergency Medicine; PCP Internal Medicine
DX: R10.11 Right upper quadrant pain (principal)
CPT/HCPCS: 36415; 74176; 76705; 80053; 81001; 83690; 85025; 85379; 96374; 96375; 96376; 99284; J1171; J1885; J2405; J7030